=== PATIENT | female | born 1990 | race African-American/Black ===

== ENCOUNTER 2018-09-20 09:32 | Emergency (ER) | payer MEDICARE, OTHER ==
[~2018-09-20] VITALS: Ht 167.6 cm; Wt 59.0 kg
[2018-09-20] MEDS ORDERED: SODIUM CHLORIDE 0.9% 1,000 ML IV ONE (10:12)
[2018-09-20] MEDS ORDERED: KETOROLAC 30MG/ML VIAL IV STA (10:12)
[2018-09-20 10:32] LABS: BASOPHILS % 0.4 % (0.0-2.0); EOSINOPHILS % 3.9 % (0.0-5.0); HEMATOCRIT. 39.2 % (36.0-48.0); HEMOGLOBIN. 13.3 g/dL (12.0-16.0); LYMPHOCYTES % 30.7 % (20.0-50.0); MEAN CORPUSCULAR HEMOGLOBIN 30.7 pg (28.0-32.0); MEAN CORPUSCULAR VOLUME 90.8 fL (81.0-99.0); MEAN PLATELET VOLUME 7.6 fl (7.4-10.4); MONOCYTES % 10.6 % (2.0-8.0); NEUTROPHILS % 54.4 % (40.0-76.0); PLATELET 191 x1000/uL (130-400); RED BLOOD CELL COUNT 4.32 mill/uL (4.2-5.4); RED CELL DISTRIBUTION WIDTH 11.9 % (11.6-14.6)
[2018-09-20 10:39] LABS: PROTHROMBIN TIME 10.1 sec (9.6-11.0)
[2018-09-20 10:40] LABS: CHLORIDE 106 mEq/L (98-107)
[2018-09-20 11:00] LABS: CLARITY URINE CLEAR (CLEAR); COLOR URINE YELLOW (YELLOW); KETONES URINE NEGATIVE (NEGATIVE); LEUKOCYTE ESTERASE URINE NEGATIVE (NEGATIVE); NITRITE URINE NEGATIVE (NEGATIVE); OCCULT BLOOD URINE 3+ (NEGATIVE); PH URINE 6.5 (4.5-8.0); PROTEIN URINE NEGATIVE (NEGATIVE); SPECIFIC GRAVITY URINE 1.003 (1.005-1.030); UROBILINOGEN URINE 0.2 E.U./dL (0.2-1.0)
[2018-09-20 14:15] VITALS: BP 128/74
== END 2018-09-20 14:28 | disposition home or self-care (01) ==
LOC: ER 09:32
DX: R10.9 Unspecified abdominal pain (principal); R31.9 Hematuria, unspecified
CPT/HCPCS: 36415; 74018; 74176; 80053; 81003; 81025; 83690; 85025; 85610; 96374; 99284; J1885; J7030

== ENCOUNTER 2020-01-12 09:10 | Emergency (ER) | payer MEDICARE ==
[~2020-01-12] VITALS: Ht 154.9 cm; Wt 53.0 kg
[2020-01-12] MEDS ORDERED: TRAMADOL 50MG TABLET PO ONE (09:30)
[2020-01-12] MEDS ORDERED: TETANUS, DIPHTHERIA, PERTUSSIS VAC/PF 0.5ML (>7YR OLD) IM ONE (09:30)
[2020-01-12] MEDS ORDERED: FLUORESCEIN SODIUM 1MG/STRIP RIGHTEYE ONE (09:30)
[2020-01-12] MEDS ORDERED: TETRACAINE 0.5% OPHTH DROPS 4ML RIGHTEYE ONE (09:30)
[2020-01-12 11:58] VITALS: BP 129/92
== END 2020-01-12 11:59 | disposition home or self-care (01) ==
LOC: ER 09:10
DX: S05.11XA Contusion of eyeball and orbital tissues, right eye, initial encounter (principal); Y04.2XXA Assault by strike against or bumped into by another person, initial encounter; Y93.89 Activity, other specified; Y92.89 Other specified places as the place of occurrence of the external cause; Z23 Encounter for immunization
CPT/HCPCS: 70486; 90471; 90715; 99284